=== PATIENT | male | born 1995 | race Caucasian/White ===

== ENCOUNTER 2016-08-13 21:17 | Emergency (ER) | payer BC ==
[~2016-08-13] VITALS: Ht 182.9 cm; Wt 82.9 kg
[2016-08-13 21:20] VITALS: TEMP 36.8; Ht 182.9 cm; Wt 82.9 kg
[2016-08-13] MEDS ORDERED: DOXYCYCLINE HYCLATE 100 MG CAP PO ONE (21:30)
[2016-08-13] MEDS ORDERED: DOXY100C2 PO (22:12)
[2016-08-13 22:23] VITALS: BP 120/67; PULSE 63; O2SAT 98
--- NOTE | 2016-08-14 03:40 | EMERGENCY ROOM VISIT NOTE ---
History First contact with patient: 21:22 Chief Complaint: RASH Stated Complaint: RED BULLS EYE History of Present Illness The patient is a 20 year old male who presents to the Emergency Room with complaints of bull's-eye rash to abdomen for the past day. Patient denies fever , chills, cough, congestion, cold symptoms, abdominal pain, neck stiffness, headache, chest pain, dyspnea, new foods soaps or detergents. No known tick bite. No other complains per patient. Tetanus is current. Review of Systems See HPI for pertinent positives & negatives. A total of 10 systems reviewed and were otherwise negative. Past Medical/Surgical History None Social History Smoking Status: Never Smoker Smokeless Tobacco Use: No Drug Use: none Marital Status: single Current/Historical Medications Scheduled Doxycycline Hyclate (Vibramycin), 100 MG PO BID Allergies Coded Allergies: No Known Allergies (Unverified , 08/13/16) Physical Exam Vital Signs Date Time Temp Pulse Resp B/P (MAP) Pulse Ox O2 Delivery O2 Flow Rate FiO2 08/13/16 22:23 63 18 120/67 98 08/13/16 21:20 36.8 64 18 132/81 97 Room Air Pain Rating (0-10): 0 Physical Exam VITALS: Vitals are noted on the nurse's note and reviewed by myself. Vital signs stable. GENERAL: Pleasant male, in no acute distress, nondiaphoretic, well-developed well-nourished. SKIN: Erythema migrans to abdomen The rest of the skin was without rashes, erythema, edema, or bruising. There is no tenting of the skin. Capillary reflex less than 2 seconds. HEAD: Normocephalic atraumatic. EARS: External auditory canals clear, tympanic membranes pearly saab without erythema or effusion bilaterally. EYES: Pupils equal round and reactive to light and accommodation. Conjunctivae without injection, sclerae without icterus. Extraocular movements intact. NOSE: Patent, turbinates without inflammation or discharge. MOUTH: Mucous membranes moist. Pharynx without erythema or exudate. Uvula midline. Airway patent. Tongue does not deviate. NECK: Supple without nuchal rigidity. No lymphadenopathy. No thyromegaly. Cervical spine is nontender. No JVD. No meningeal signs HEART: Regular rate and rhythm without murmurs gallops or rubs. LUNGS: Clear to auscultation bilaterally without wheezes, rales or rhonchi. No dullness to percussion. No retractions or accessory muscle use. ABDOMEN: Positive bowel sounds x 4. Normal tympanic percussion. Soft, nontender, without masses or organomegaly. Mir sign negative. No guarding or rebound tenderness. MUSCULOSKELETAL: No muscle atrophy, erythema, or edema noted. NEURO: Patient was alert and oriented to person place and time. Normal sensation to light and sharp touch. No focal neurological deficits. Medical Decision & Procedures Medications Administered Medications (Trade) Dose Ordered Sig/Chele Route Start Time Stop Time Status Last Admin Dose Admin Doxycycline Hyclate (Vibramycin Cap) 200 mg ONE ONCE PO 08/13/16 21:30 08/13/16 21:31 DC 08/13/16 21:43 200 MG ED Course Prior records/ancillary studies reviewed. Triage Nursing notes reviewed. The patient's history was concerning for a rash. Differential diagnosis: Etiologies such as erythema migrans, contact dermatitis, viral exanthem, urticaria, allergic reaction, Garcia-Jorge syndrome, toxic epidermal necrolysis, erythema multiforme, cellulitis, scabies, HSV, varicella, zoster, eczema, staph scalded skin syndrome, fungal infection, as well as others were entertained. Physical examination: Exam and history seem consistent with Lyme's disease ER treatment provided: Doxycycline and on reassessment the patient felt better. Diagnostic interpretation by me: Deferred The etiology for the patient's rash appears to be consistent with erythema migrans. Patient was started on doxycycline and advised to avoid excessive sun exposure while on this medication. He was advised to follow-up family care in a few days or here in the ER sooner for headache, neck status, high fevers, worsening signs or symptoms or as needed By the evaluation outlined above emergent etiologies such as Garcia-Jorge syndrome, toxic epidermal necrolysis, erythema multiforme, cellulitis, scabies, HSV, varicella, zoster, staph scalded skin syndrome, urticaria, allergic reaction, as well as others were deemed relatively unlikely. The pt informed about the findings as listed above. All questions were answered and pleased with the treatment. Return instructions were outlined and the patient was discharged in stable condition. Outpatient prescription management: Doxycycline Referral: The patient was referred back to their primary care physician for follow-up in 2 -3 days for a recheck of the current condition. Medical Decision As above Impression Primary Impression: Erythema migrans (Lyme disease) Departure Information Dispostion Home / Self-Care Condition GOOD Prescriptions Doxycycline Hyclate (VIBRAMYCIN) 100 Mg Cap 100 MG PO BID for 14 Days, #28 CAP Prov: Annamarie Patel .VIRY 08/13/16 Forms WORK / SCHOOL INSTRUCTIONS, HOME CARE DOCUMENTATION FORM, IMPORTANT VISIT INFORMATION Patient Instructions My [facility], ED Facts Tick Additional Instructions Doxycycline 100mg: Take one pill twice daily for 14 days for your infection. Take with food, but avoid dairy. Avoid prolonged sun exposure since this medication makes you temporarily more susceptible to sunburns. All antibiotics can cause diarrhea. If this occurs and you feel worse or it does not resolve in 1-2 days follow up with your doctor or return to the Emergency Department as this could be signs of serious underlying problems. Any medication can cause an allergic reaction, stop the pills immediately and return to the ER for rash, hives, breathing difficulties, or swelling. Acetaminophen(Tylenol) may be used for fever or pain. Use 1000mg every six hours as needed. Avoid using more than 3000mg in a 24 hour period. AND/OR Ibuprofen(Motrin, Advil) may be used for fever or pain. Use 600mg every six hours as needed. Take with food. Avoid using more than 2400mg in a 24 hour period. Do not use 2400mg per day for more than three consecutive days without physician direction. Prolonged inappropriate use can lead to stomach upset or ulcers. The rash will be present for a week or 2. Return to ER sooner for headache, neck stiffness, high fevers, worsening signs or symptoms or as needed. Follow-up with family care in 2-3 days.
== END 2016-08-13 22:24 | disposition home or self-care (01) ==
LOC: C.EDB 21:19
DX: A26.0 Cutaneous erysipeloid (principal)